=== PATIENT | male | born 1985 | race African-American/Black ===

== ENCOUNTER → 2018-10-05 | Outpatient (REF) | payer OTHER ==
[2018-10-05 11:22] LABS: SEMEN APPEARANCE OPAQUE (OPAQUE); SEMEN VISCOSITY LIQUID (LIQUID); SEMEN VOLUME 3.4 ml (4.0-5.0)
[2018-10-05 11:23] LABS: SPERM CONCENTRATION 84.1 M/ml (>=15.0); WBC CONCENTRATION <=1 M/ml (<=1 M/ml)
== END ==
LOC: M LAB REF 10:54
PROVIDERS: ATTEND Family Medicine
DX: N46.9 Male infertility, unspecified (principal)

== ENCOUNTER 2019-01-25 10:18 | Inpatient (IN) | payer OTHER ==
[~2019-01-25] VITALS: Ht 188 cm; Wt 98.0 kg
[2019-01-25] MEDS ORDERED: PRAZ2CAP PO (10:40)
[2019-01-25] MEDS ORDERED: TRAZ1TAB12 PO (10:40)
[2019-01-25] MEDS ORDERED: LATU40TA PO (10:40)
[2019-01-25 11:11] LABS: HEMATOCRIT 43.2 % (42.0-52.0); HEMOGLOBIN 14.2 g/dl (13.5-17.5); MEAN CORPUSCULAR HGB CONC 32.9 g/dl (32.0-36.5); MEAN CORPUSCULAR VOLUME 82.3 fl (80.0-96.0); PLATELET COUNT, AUTOMATED 281 10^3/uL (150-450); RED BLOOD COUNT 5.25 10^6/uL (4.30-6.10); WHITE BLOOD COUNT 4.6 10^3/uL (4.0-10.0)
[2019-01-25 11:44] LABS: ACETAMINOPHEN LEVEL < 2.0 UG/ML (10.0-30.0); ALBUMIN 4.1 GM/DL (3.2-5.2); ALT/SGPT 19 U/L (12-78); BILIRUBIN,DIRECT 0.3 MG/DL (0.0-0.2); BILIRUBIN,TOTAL 1.7 MG/DL (0.2-1.0); BLOOD UREA NITROGEN 11 MG/DL (7-18); CALCIUM LEVEL 8.9 MG/DL (8.5-10.1); CARBON DIOXIDE LEVEL 30 MEQ/L (21-32); CHLORIDE LEVEL 104 MEQ/L (98-107); CREATININE FOR GFR 0.98 MG/DL (0.70-1.30); ETHYL ALCOHOL (ETHANOL) < 0.003 % (0.000-0.010); GLOMERULAR FILTRATION RATE > 60.0 (>60); GLUCOSE, FASTING 84 MG/DL (70-100); POTASSIUM SERUM 4.2 MEQ/L (3.5-5.1); SALICYLATE LEVEL < 1.7 MG/DL (5.0-30.0); SODIUM LEVEL 141 MEQ/L (136-145); TOTAL PROTEIN 7.5 GM/DL (6.4-8.2)
[2019-01-25 12:39] LABS: AMPHETAMINES LEVEL URINE NEGATIVE (NEGATIVE); BARBITURATES URINE NEGATIVE (NEGATIVE); BENZODIAZEPINES URINE NEGATIVE (NEGATIVE); CANNABINOIDS URINE NEGATIVE (NEGATIVE); COCAINE METABOLITE URINE NEGATIVE (NEGATIVE); METHADONE URINE NEGATIVE (NEGATIVE); OPIATES URINE NEGATIVE (NEGATIVE); PHENCYCLIDINE URINE NEGATIVE (NEGATIVE)
[2019-01-25] MEDS ORDERED: GABA-843 PO (13:45)
[2019-01-25] MEDS ORDERED: MAALOX 30 ML SUSP *UDC PO PRN (16:30)
[2019-01-25] MEDS ORDERED: MOM 30ML SUSPENSION UDC PO PRN (16:30)
[2019-01-25] MEDS ORDERED: ACETAMINOPHEN TAB 650MG DOSE (2X325MG) PO PRN (16:30)
[2019-01-25] MEDS ORDERED: hydrOXYzine 25 MG TAB PO PRN (16:45)
[2019-01-25] MEDS ORDERED: LURASIDONE HCL 40 MG TAB (LATUDA) PO SCH (18:00)
[2019-01-25 19:56] VITALS: BP 135/85
[2019-01-25 20:06] VITALS: BP 134/88
[2019-01-25] MEDS ORDERED: GABAPENTIN 300 MG CAP PO ONE (21:00)
[2019-01-25] MEDS: PRAZOSIN 1 MG CAP PO SCH (21:18)
[2019-01-26 06:47] VITALS: BP 135/68
[2019-01-26 18:00] VITALS: BP 124/58
[2019-01-26] MEDS: traZODone 50 MG TAB PO PRN (20:29)
[2019-01-26] MEDS: PRAZOSIN 1 MG CAP PO SCH (20:29)
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
[2019-01-26] MEDS: LURASIDONE 20 MG TAB (LATUDA) PO SCH (20:53)
--- NOTE | 2019-01-26 23:12 | MHHPE ---
DATE OF ADMISSION: 01/26/2019 Psychiatric history and evaluation for further details on this admission. This examination history is intended for medial issues which may need treatment, followup or consult on this 33-year-old male. ALLERGIES: Shell fish derived. PRIMARY CARE PROVIDER: [facility]. SOCIAL HISTORY: He is and he has one daughter 4 years old. EtOH occasional once or month or less. Does not smoke cigarettes and does not use any type of tobacco. Recreational drug use none. PAST MEDICAL HISTORY: Migraine, traumatic brain injury 2011, chronic back pain that he has had physical therapy for. He was supposed to have surgery but the [employer] denied it, bilateral knee pain for which he is going to physical therapy. PAST SURGICAL HISTORY: Bilateral bunionectomy. HOME MEDICATIONS: Gabapentin 300 mg by mouth twice a day, Latuda 40 mg by mouth at bedtime, Prazosin 4 mg by mouth at bedtime, trazodone 200 mg at bedtime. FAMILY HISTORY: The medical history of his mother and father he states that he does not know. LABORATORY STUDIES: CBC is normal, electrolytes were normal, BUN 11, creatinine 0.98, total bilirubin 1.7, direct bilirubin 0.3. Toxicology was negative. 10 systems review was done, other than the knee pain for which he is going to physical therapy and chronic back pain was unremarkable. PHYSICAL EXAMINATION: 33-year-old cooperative male in no acute distress. Height 74 inches, weight 98 kg, BMI 27.7, blood pressure 124/58, pulse 75, respirations 16, temperature 98.7, Patient is alert and oriented times three. Pupils are equal and reactive to light. EOM's are intact. No facial asymmetry. Tongue was midline. Neck is supple without lymphadenopathy. No thyromegaly and no goiter. Carotids are 2+ without bruit. Chest clear to auscultation without wheezes or retraction. Heart is regular. Abdomen is benign. Bowel sounds are positive. and rectal not done. Extremities show full range of motion. No cyanosis, clubbing or edema. Peripheral pulse equal and palpable bilaterally. Skin is warm and dry. IMPRESSION/PLAN: 1. Psychiatric plan per psychiatry. 2. Chronic back pain. Continue to followup at [facility]. 3. Bilateral knee pain. Continue with physical therapy as ordered. 4. Elevated total bilirubin and direct bilirubin. We will recheck CMP in the morning. No other acute medical issues.
[2019-01-27 06:41] VITALS: BP 135/80
[2019-01-27 07:36] LABS: ALBUMIN 4.3 GM/DL (3.2-5.2); ALT/SGPT 19 U/L (12-78); BILIRUBIN,TOTAL 1.9 MG/DL (0.2-1.0); BLOOD UREA NITROGEN 12 MG/DL (7-18); CARBON DIOXIDE LEVEL 28 MEQ/L (21-32); CHLORIDE LEVEL 104 MEQ/L (98-107); CREATININE FOR GFR 0.95 MG/DL (0.70-1.30); GLOMERULAR FILTRATION RATE > 60.0 (>60); GLUCOSE, FASTING 99 MG/DL (70-100); SODIUM LEVEL 140 MEQ/L (136-145); TOTAL PROTEIN 7.9 GM/DL (6.4-8.2)
[2019-01-27] MEDS: GABAPENTIN 300 MG CAP PO SCH ×2 (09:00→21:00)
--- NOTE | 2019-01-27 10:52 | MHIPNPDOC ---
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 He has a history of bipolar disorder, treated on Latuda at this time. The patient reports that he has been recently coming out of a depressive episode that has significant irritation, moodiness, hopelessness, fatigue, suicidal thoughts and difficulties with nightmares. He reportedly additionally has a history of trauma while in deployment with nightmares, avoidance, agitation, hyper-vigilance, related to the aforementioned stressor. He reports that it has been making some improvements on the Latuda but that he had been unprepared for the sudden change in his treatment as he reports significant back pain and feels that his outpatient provider's prescription of gabapentin was not effective and that he was not properly counseled on this. Interval History The patient is met with today. He reports doing well and is excited for discharg e tomorrow. He reports the increased Latuda did cause him a bit of insomnia. However, he denies any other side effects. Denies tremors, muscle stiffness, palpitations, heart problems, depressed mood, irritability, fatigue, anger, or homicidal thoughts. Additionally, denies any GI upset. Reports no constipation or diarrhea. Reports no headaches or other concerning side effects at this time. Reports feeling much improved. Nurses note that the patient has been attending groups and able to engage in his treatment with no behavioral problems. Review Of Systems As above. Psychotherapy None on this visit. Vital Signs Reviewed. Mental Status Examination General: Well dressed with good hygiene Speech: Spontaneous and fluid Thought processes: Linear and logical MSK: Smooth and coordinated gait, no signs of tremors or involuntary orofacial movements Thought content: Future orientated Abstract reasoning, and computation: Intact Description of associations: Intact Description of abnormal or psychotic thoughts: Denies any suicidal or homicidal ideation. Denies any auditory or visual hallucinations. Does not appear to be responding to internal stimuli. Does not appear to be endorsing any bizarre or paranoid ideation. Judgment: fair Insight: fair Orientation: Alert and orientated 3 Cognition: Grossly normal Recent and remote memory: Intact Attention span and concentration: Intact Fund of knowledge: Adequate Mood: "okay" Affect: Euthymic with a full range Diagnoses Bipolar disorder, type 1, most recent episode mixed in partial remission. PTSD, chronic versus acute. Assessment and Plan Continue Latuda 60 mg with no changes. Discharge tomorrow. Disposition Discharge tomorrow. Time Spent 15 minutes [id number]. Friday Vital Signs Vital Signs Date Time Temp Pulse Resp B/P (MAP) Pulse Ox O2 Delivery O2 Flow Rate FiO2 01/27/19 06:41 97.8 118 16 135/80 (98) 01/25/19 20:06 99 01/25/19 18:08 Room Air Laboratory Data 24H Labs Laboratory Tests 2 01/27/19 06:24: Anion Gap 8, Glomerular Filtration Rate > 60.0, Blood Urea Nitrogen 12, Creatinine 0.95, Sodium Level 140, Potassium Level 4.0, Chloride Level 104, Carbon Dioxide Level 28, Calcium Level 9.0, Aspartate Amino Transf (AST/SGOT) 10, Alanine Aminotransferase (ALT/SGPT) 19, Alkaline Phosphatase 57, Total Bilirubin 1.9H, Total Protein 7.9, Albumin 4.3, Albumin/Globulin Ratio 1.19 CBC/BMP Laboratory Tests 01/27/19 06:24 Calcium Level 9.0, Aspartate Amino Transf (AST/SGOT) 10, Alanine Aminotransferase (ALT/SGPT) 19, Alkaline Phosphatase 57, Total Bilirubin 1.9 H, Total Protein 7.9, Albumin 4.3 Current Medications Current Medications Medications (Trade) Dose Ordered Sig/Dereje Route PRN Reason Start Time Stop Time Status Last Admin Dose Admin Acetaminophen (Tylenol Tab) 650 mg Q6HP PRN PO HEADACHE or DISCOMFORT 01/25/19 16:30 Al Hydrox/Mg Hydrox/Simethicone (Mylanta) 30 ml Q4HP PRN PO HEARTBURN/INDIGESTION 01/25/19 16:30 Gabapentin (Neurontin) 300 mg BID PO 01/27/19 09:00 Home Med (Med Rec Complete!) ASDIRECTED XX 01/25/19 14:00 01/25/19 14:00 DC Hydroxyzine HCl (Atarax) 25 mg Q6HP PRN PO ANXIETY 01/25/19 16:45 Lurasidone HCl (Latuda) 40 mg DAILY@1800 PO 01/25/19 18:00 01/26/19 13:33 DC 01/25/19 21:17 Lurasidone HCl (Latuda) 60 mg DAILY@1800 PO 01/26/19 18:00 01/26/19 20:53 Magnesium Hydroxide (Milk Of Magnesia) 30 ml DAILYPRN PRN PO CONSTIPATION 01/25/19 16:30 Prazosin HCl (Minipress) 1 mg QHS PO 01/25/19 21:00 01/26/19 20:29 Trazodone HCl (Desyrel) 50 mg QHSP PRN PO INSOMNIA 01/25/19 16:30 01/26/19 20:29 Allergies Coded Allergies: shellfish derived (Verified Allergy, Mild, RASH, 01/25/19) ARA SANCHEZ DO Jan 27, 2019 10:52
[2019-01-27] MEDS: LURASIDONE 20 MG TAB (LATUDA) PO SCH (18:36)
[2019-01-27 19:01] VITALS: BP 146/85
[2019-01-27 21:26] VITALS: BP 127/77
[2019-01-27] MEDS: traZODone 50 MG TAB PO PRN (21:26)
[2019-01-27] MEDS: PRAZOSIN 1 MG CAP PO SCH (21:26)
[2019-01-28 06:41] VITALS: BP 123/73
[2019-01-28] MEDS: GABAPENTIN 300 MG CAP PO SCH (09:00)
[2019-01-28] MEDS ORDERED: MINI1CAP PO (09:07)
[2019-01-28] MEDS ORDERED: LATU20TA PO (09:07)
[2019-01-28] MEDS ORDERED: TRAZ-252 PO (09:07)
--- NOTE | 2019-01-28 09:08 | MHDSPDOC ---
[facility] Discharge Summary Discharge Summary DATE OF ADMISSION: Jan 25, 2019 at 16:26 DATE OF DISCHARGE: 01/28/19 Date of Service: 01/28/2019 Diagnoses Bipolar disorder, type 1, most recent episode mixed in partial remission. PTSD, chronic versus acute. 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 He has a history of bipolar disorder, treated on Latuda at this time. The patient reports that he has been recently coming out of a depressive episode that has significant irritation, moodiness, hopelessness, fatigue, suicidal thoughts and difficulties with nightmares. He reportedly additionally has a history of trauma while in deployment with nightmares, avoidance, agitation, hyper-vigilance, related to the aforementioned stressor. He reports that it has been making some improvements on the Latuda but that he had been unprepared for the sudden change in his treatment as he reports significant back pain and feels that his outpatient provider's prescription of gabapentin was not effective and that he was not properly counseled on this. Consultants Involved Hospitalist/PCP screening Treatment and Progress On The Unit Patient was admitted to the unit and subsequently increased on his Latuda. He was subsequently reduced on his prazosin and trazodone he'd had arrived. He then was increased on his Latuda to 60 mg daily with positive effects. He reported that his suicidality and homicidality resolved quickly as he presented to the unit he requested to leave and after a series of observation no longer met involuntary criteria as he was not posing a danger to himself or others, was attending to his needs and engaged in safety planning. He declined to further voluntary admission and was discharged in good addy. He did report he wanted to be back on his prazosin 5 mg at night and trazodone 200 of which he was obliged after discussing with him with the increase of trazodone. Discharge Assessment 33 year old man with a history of bipolar disorder and PTSD, presents with sudden statements of suicidal and homicidal thoughts. After evaluation, he quickly resolved suggesting more a presentation with irritability from PTSD than bipolar mixed episode. He does well with very minimal medication changes. Mental Status Examination General: Well dressed with good hygiene Speech: Spontaneous and fluid Thought processes: Linear and logical MSK: Smooth and coordinated gait, no signs of tremors or involuntary orofacial m ovements Thought content: Future orientated Abstract reasoning, and computation: Intact Description of associations: Intact Description of abnormal or psychotic thoughts: Denies any suicidal or homicidal ideation. Denies any auditory or visual hallucinations. Does not appear to be responding to internal stimuli. Does not appear to be endorsing any bizarre or paranoid ideation. Judgment: fair Insight: fair Orientation: Alert and orientated 3 Cognition: Grossly normal Recent and remote memory: Intact Attention span and concentration: Intact Fund of knowledge: Adequate Mood: "okay" Affect: Euthymic with a full range Follow Up The social work team worked during the predischarge meeting in order to evaluate for further issues of lethality address them fully before discharge. They worked on safety planning with the patient's family members in order to ensure that the patient will have a safe and effective discharge. Time Spent The amount of time spent in the coordination of care for this patient was approximately 30 minutes. Vital Signs/I&Os Vital Signs Date Time Temp Pulse Resp B/P (MAP) Pulse Ox O2 Delivery O2 Flow Rate FiO2 01/28/19 06:41 98.4 91 12 123/73 (90) 01/25/19 20:06 99 01/25/19 18:08 Room Air Medications Scheduled Gabapentin (Gabapentin) 300 Mg Capsule, 300 MG PO BID, (Reported) Lurasidone Hydrochloride (Latuda) 20 Mg Tablet, 60 MG PO DAILY@1800 for mood for 7 Days, #21 Prazosin Hcl (Prazosin HCl) 2 Mg Capsule, 4 MG PO QHS for nightmares for 7 Days, #14 Trazodone HCl (Trazodone HCl) 100 Mg Tablet, 200 MG PO QHS for sleep for 7 Days, #14 Allergies Coded Allergies: shellfish derived (Verified Allergy, Mild, RASH, 01/25/19) ARA SANCHEZ DO Jan 28, 2019 09:08
[2019-01-29] MEDS ORDERED: PRAZ2CAP PO (11:35)
[2019-01-29] MEDS ORDERED: TRAZ1TAB12 PO (11:35)
[2019-01-29] MEDS ORDERED: LATU20TA PO (11:35)
== END 2019-01-28 13:43 | disposition home or self-care (01) | DRG 885 ==
LOC: M ED 10:18 → M ED INP 16:26 → M PSY 18:25
PROVIDERS: ADMIT Psychiatry & Neurology Psychiatry; ATTEND Psychiatry & Neurology Addiction Medicine
DX: F31.60 Bipolar disorder, current episode mixed, unspecified (principal); R45.851 Suicidal ideations; Z79.899 Other long term (current) drug therapy; M54.5 Low back pain; M25.561 Pain in right knee; M25.562 Pain in left knee

== ENCOUNTER → 2019-12-23 | Outpatient (CLI) | payer OTHER ==
[~2019-12-23] MED LIST: GABA-843 PO; LATU20TA PO; LATU40TA PO; MINI1CAP PO; PRAZ2CAP PO; TRAZ-252 PO; TRAZ1TAB12 PO
--- NOTE | 2019-12-23 11:34 | REPVR ---
PROCEDURE INFORMATION: Exam: MR Lumbar Spine Without Contrast. Exam date and time: 12/23/2019 8:26 AM Age: 34 years old Clinical indication: Low back pain TECHNIQUE: Imaging protocol: Multiplanar magnetic resonance images of the lumbar spine without intravenous contrast. COMPARISON: No relevant prior studies available. FINDINGS: Vertebrae: Vertebral body heights maintained. Spinal cord: Conus terminates at T12-L1 and appears normal in signal intensity without intrinsic or extrinsic lesion. L1-L2: There is no significant disc bulge. There is mild thickening of ligamentum flavum and facet degeneration. There is no significant spinal stenosis. There is no significant neural foraminal narrowing. L2-L3: There is no significant disc bulge. There is mild thickening of ligamentum flavum and facet degeneration. There is no significant spinal stenosis. There is no significant neural foraminal narrowing. L3-L4: There is mild disc bulge. There is mild thickening of ligamentum flavum and facet degeneration. There is no significant spinal stenosis. There is no significant neural foraminal narrowing. L4-L5: There is disc desiccation with preserved disc height. There is moderate disc bulge. There is a focal posterior annular fissure and there is a shallow superimposed broad-based central protrusion slightly lateralizing to the left. This causes slight narrowing the superior aspect left L5 subarticular recess. There is mild to moderate thickening of ligamentum flavum and facet degeneration. There is no significant spinal stenosis. There is no significant neural foraminal narrowing. L5-S1: There is increased T2 and STIR signal within the disc space suggesting fluid/edema. There is abnormal marrow signal within the adjacent superior S1 and mid to inferior L5 vertebral bodies. This shows increased STIR and decreased T1 signal. The inferior endplate of L5 and superior endplate S1 appear slightly ill-defined suggesting mild erosion. Therefore, discitis and osteomyelitis needs to be excluded. There is no visible epidural fluid or paraspinal fluid collection to suggest any drainable abscess. The anterior epidural fat planes adjacent to the posterior vertebral margins and disc space appear slightly ill-defined suggest mild inflammatory change. There is moderate to large disc bulge. There is mild thickening of ligamentum flavum and facet degeneration. Disc bulge contacts and slightly flattens the ventral aspect of thecal sac but with no significant spinal stenosis. There is moderate bilateral neural foraminal narrowing. Soft tissues: Unremarkable. IMPRESSION: 1. L5-S1 shows findings that are concerning discitis and osteomyelitis which must excluded based on this study. Correlate clinically for risk factors such is intravenous drug abuse or urinary tract infection or sepsis. Correlate with inflammatory blood work. Follow-up CT to assess for endplate erosion and/or MRI with contrast may also be helpful. 2. Degenerative changes as described. Alexander Ye was notified of these results by telephone call from Dr. Jennifer Payan 12/23/2019 11:32 AM EDT and acknowledged receipt of this notification. Electronically signed by: Jennifer Payan On 12/23/2019 11:34:18 AM
== END ==
LOC: M RAD 07:43
PROVIDERS: ATTEND Physician Assistant Medical
DX: M54.5 Low back pain (principal)